=== PATIENT | female | born 1940 ===

== ENCOUNTER 2019-02-06 12:49 | Emergency (ER) | payer MEDICARE, BC ==
[2019-02-06 12:53] VITALS: BMI 28.7
[2019-02-06 12:59] VITALS: RESP 18; TEMP 98.1
--- NOTE | 2019-02-06 13:32 | ED PDOC ---
Arrival/HPI - General Chief Complaint: Lower Extremity Problem/Injury Time Seen by Provider: 02/06/19 13:04 Historian: Patient - History of Present Illness Narrative History of Present Illness (Text): 02/06/19 78 yo female w/PMhx of HTN, OA come in for evaluation of B/L knees pain gradually developed for past few weeks. Pt reports, pain is worse overnight " unable to sleep at night because of pain". Pt reports, "sometimes also have pain in my shoulders". Otherwise, pt denies known trauma or injury, fever, chills, new swelling or skin changes over B/l knees, denies C, SOB, dyspnea, cough, palpitation, denies B/L calf pain. Ambulatory in ED with baseline gait, not in any apparent distress. Past Medical History - Provider Review Nursing Documentation Reviewed: Yes - Infectious Disease Hx of Infectious Diseases: None - Pulmonary Hx Asthma: Yes - Musculoskeletal/Rheumatological Hx Arthritis: Yes - Gastrointestinal Hx Gastroesophageal Reflux: Yes - Psychiatric Hx Substance Use: No - Surgical History Hx Section: Yes (x1) Hx Cholecystectomy: Yes Other/Comment: varicose veins - Anesthesia Hx Anesthesia: Yes Hx Anesthesia Reactions: No Hx Malignant Hyperthermia: No Family/Social History - Physician Review Nursing Documentation Reviewed: Yes Family/Social History: No Known Family HX Smoking Status: Never Smoked Hx Alcohol Use: No Hx Substance Use: No Allergies/Home Meds Allergies/Adverse Reactions: Allergies No Known Allergies Allergy (Verified 02/06/19 12:53) Home Medications: Home Meds Medication Instructions Recorded Confirmed Albuterol Sulfate [Proventil Hfa] 1 puff IH PRN PRN 02/06/19 02/06/19 Donepezil [Aricept] 1 tab PO HS 02/06/19 02/06/19 Pantoprazole [Protonix EC Tab] 1 tab PO DAILY 02/06/19 02/06/19 Ursodiol [Actigall] 250 mg PO BID 02/06/19 02/06/19 Review of Systems - Physician Review All systems were reviewed & negative as marked: Yes - Review of Systems Constitutional: Normal Respiratory: absent: SOB, Cough Cardiovascular: absent: Chest Pain, Palpitations, Edema, Calf Pain, KATE Musculoskeletal: Arthralgias Skin: absent: Rash Neurological: absent: Headache, Dizziness Psychiatric: Normal Physical Exam Vital Signs Reviewed: Yes Vital Signs Temp Pulse Resp BP Pulse Ox 02/06/19 12:58 98.1 F 97 H 18 138/82 95 Temperature: Afebrile Blood Pressure: Normal Pulse: Regular Respiratory Rate: Normal Appearance: Positive for: Well-Appearing, Non-Toxic, Comfortable Pain Distress: None Mental Status: Positive for: Alert and Oriented X 3 - Systems Exam Respiratory/Chest: Present: Clear to Auscultation, Good Air Exchange. No: Respiratory Distress, Wheezes, Decreased Breath Sounds Cardiovascular: Present: Regular Rate and Rhythm, Normal S1, S2 Lower Extremity: Present: NORMAL PULSES, Normal ROM, Tenderness (mild diffuse L>R knee, mild nos edema over left knee. no erythema, no effusion. FAROM of B/l knees, no neurovascuar deficits), Neurovascularly Intact. No: CALF TENDERNESS (B/L legs), Deformity Neurological: Present: GCS=15, Normal Sensory Function, Norm Deep Tendon Reflexes Skin: Present: Warm, Normal Color Psychiatric: Present: Alert, Oriented x 3 Medical Decision Making ED Course and Treatment: 02/06/19 On re-eval, pt remained stable Afebrile, hemodynamicaly stable Non-toxic B/L knees: diffuse mild tenderness, no effusion, no erythema. FAROM of B/L LEs, no neurovascular deficits. No calf tenderness B/L. neuorlogicaly intact Imagings review (+) mod DJD results review and discussed with pt. Pt advised to f/u with PMD, ortho in 2-3 days for re-eavl. return to ED if any worsening or new changes Pt understand, stable for discharge now. - RAD Interpretation Narrative RAD Interpretations (Text): 02/06/19 B/L knees (+) mod DJD, no acute fx or dislocation Disposition/Present on Arrival - Present on Arrival Any Indicators Present on Arrival: No History of DVT/PE: No History of Uncontrolled Diabetes: No Urinary Catheter: No History of Decub. Ulcer: No History Surgical Site Infection Following: None - Disposition Have Diagnosis and Disposition been Completed?: Yes Diagnosis: Arthritis of knee Disposition: HOME/ ROUTINE Disposition Time: 14:40 Patient Plan: Discharge Condition: STABLE Discharge Instructions (ExitCare): Osteoarthritis (DC), Knee Pain (DC) Additional Instructions: Take medication as prescribed Follow up with PMD, orthopedist in 2-3 days for re-evaluation. return to ED if any worsening or new changes. Prescriptions: Prednisone [Deltasone] 40 mg PO DAILY #6 tablet traMADol [Ultram] 50 mg PO TID #7 tab Referrals: Simone Artis MD [Staff Provider] - Follow up with primary John Watson DO [Staff Provider] - Follow up with primary Forms: [facility] ([place]e)
[2019-02-06 15:22] VITALS: BP 137/87; PULSE 92; O2SAT 97
--- NOTE | 2019-02-06 15:28 | RAD ---
Date of service: 02/06/2019 PROCEDURE: Right Knee Radiographs. HISTORY: pain COMPARISON: None. TECHNIQUE: 2 views obtained. FINDINGS: BONES: Normal. No fracture. JOINTS: Normal. No osteoarthritis. JOINT EFFUSION: None. OTHER FINDINGS: None. IMPRESSION: Normal radiographs of the right knee.
--- NOTE | 2019-02-06 15:28 | RAD ---
Date of service: 02/06/2019 PROCEDURE: Left Knee Radiographs. HISTORY: Pain. COMPARISON: None. TECHNIQUE: 2 views obtained. FINDINGS: BONES: Normal. No fracture. JOINTS: Normal. No osteoarthritis. JOINT EFFUSION: Moderate-sized joint effusion OTHER FINDINGS: None. IMPRESSION: Normal radiographs of the left knee.
== END 2019-02-06 15:21 | disposition home or self-care (01) ==
LOC: ED 12:49
DX: M17.0 Bilateral primary osteoarthritis of knee (principal); I10 Essential (primary) hypertension

== ENCOUNTER 2019-02-20 09:48 | Outpatient (CLI) | payer MEDICARE, BC | END 2019-02-20 09:49 | disposition home or self-care (01) | LOC: RAD 09:48 ==